=== PATIENT | male | born 1960 | race Two or more races ===

== ENCOUNTER 2018-05-07 11:39 | Emergency (ER) | payer BC ==
[2018-05-07 12:00] VITALS: TEMP 98.2; BMI 26.5
--- NOTE | 2018-05-07 12:16 | PDOC ---
History of Present Illness - General Chief Complaint: Chest Pain Stated Complaint: CHEST PAIN Time Seen by Provider: 05/07/18 12:14 - History of Present Illness Initial Comments: 05/07/18 12:42 57 year old man without significant past medical history who presents with 2 hours of constant substernal burning like chest pain radiating into the L shoulder and arm and associated with nausea, diaphoresis. The patient reports that he has been having this pain intermittently for the past week it would occasionally wake him up from sleep, would worsen when lying back and resolve on its own. The patient denies shortness of breath, lightheadedness, recent illness or fever, recent travel. He is very anxious at bedside as he has never had a pain like this before and he does not regularly follow with a doctor. He has no other complaints at bedside. PCP: none Past History - Past Medical History Allergies/Adverse Reactions: Allergies Allergy/AdvReac Type Severity Reaction Status Date / Time No Known Allergies Allergy Verified 05/07/18 11:58 Home Medications: Ambulatory Orders NK [No Known Home Medication] 10/18/15 COPD: No - Suicide/Smoking/Psychosocial Hx Smoking History: Never smoked Hx Alcohol Use: No Drug/Substance Use Hx: No Substance Use Type: None *Physical Exam - Vital Signs Last Vital Signs Temp Pulse Resp BP Pulse Ox 98.2 F 59 L 18 140/95 100 05/07/18 11:58 05/07/18 11:58 05/07/18 11:58 05/07/18 11:58 05/07/18 11:58 - Physical Exam Comments: 05/07/18 12:50 unremarkable, anxious Moderate Sedation - Procedure Monitoring Vital Signs: Procedure Monitoring Vital Signs Temperature 98.2 F 05/07/18 11:58 Pulse Rate 59 L 05/07/18 11:58 Respiratory Rate 18 05/07/18 11:58 Blood Pressure 140/95 05/07/18 11:58 O2 Sat by Pulse Oximetry (%) 100 05/07/18 11:58 ED Treatment Course - LABORATORY CBC & Chemistry Diagram: 05/07/18 12:37 05/07/18 12:37 Medical Decision Making - Medical Decision Making 05/07/18 12:48 57 year old man without significant past medical history who presents with constant substernal burning like chest pain radiating into the L shoulder and arm and associated with nausea, diaphoresis. The patient reports that he has been having this pain intermittently for the past week it would occasionally wake him up from sleep, would worsen when lying back and resolve on its own. ED Course: consider ACS vs arrythmia vs GERD vs msk cbc, cmp, trop, ekg, cxr pepcid, maalox, tylenol 05/07/18 13:06 EKG: ST elevations in II, III, aVF, ST depression in V2, V3, V4, V5, V6 325 ASA, heparin 5000, morphine 4 [facility] STEMI team made aware recommend 600 plavix morphine 4 redosed 2/2 persistent pain Patient transferred to [facility] *DC/Admit/Observation/Transfer Diagnosis at time of Disposition: STEMI (ST elevation myocardial infarction) - Discharge Dispostion Disposition: TRANSFER ACUTE CARE/OTHER HOSP Condition at time of disposition: Stable Decision to Admit order: No - Referrals - Patient Instructions - Post Discharge Activity
[2018-05-07] MEDS ORDERED: MAG HYDROX/AL HYDROX/SIMETH 30 ML UNIT-DOSE CUP PO ONE (12:44)
[2018-05-07] MEDS ORDERED: FAMOTIDINE 20 MG/50 ML IVPB 20 MG/50 ML MG IVPB ONE ×2 (12:44→12:49)
[2018-05-07] MEDS ORDERED: ACETAMINOPHEN 1000 MG/100 ML VIAL (NON FORMULARY) IVPB ONE (12:44)
[2018-05-07] MEDS ORDERED: ACETAMINOPHEN INJECTION 100 ML IVPB ONE (12:48)
[2018-05-07] MEDS ORDERED: MAG HYDROX/AL HYDROX/SIMETH 30 ML UNIT-DOSE CUP ONE (12:49)
[2018-05-07] MEDS ORDERED: morphine CARPU-JECT 4 MG/1 ML DISP.SYRIN IVPUSH ONE ×2 (12:52→13:16)
[2018-05-07] MEDS ORDERED: morphine SULFATE 4 MG/ML VIAL ONE (12:54)
[2018-05-07] MEDS ORDERED: ASPIRIN 325 MG TABLET PO ONE (12:58)
[2018-05-07] MEDS ORDERED: ASPIRIN 325 MG TABLET ONE (12:59)
--- NOTE | 2018-05-07 13:03 | PDOC ---
Attending Attestation - Resident Resident Name: Barbra Duran - ED Attending Attestation I have performed the following: I have examined & evaluated the patient, The case was reviewed & discussed with the resident, I agree w/resident's findings & plan, Exceptions are as noted - Critical Care Time Total Critical Care Time: 35 Critical Care Statement: The care of this patient involved high complexity decision making to prevent further life threatening deterioration of the patient 's condition and/or to evaluate & treat vital organ system(s) failure or risk of failure. - Medical Decision Making 05/07/18 13:04 A portion of this note was documented by scribe services under my direction. I have reviewed the details of the note, within reason, and agree with the documentation with the following case summary and management plan written by me. Patient treated in the ED. Nursing notes are reviewed and incorporated into the medical decision-making. Vital signs reviewed. Peripheral IV access obtained by the nurse, laboratory studies are drawn and sent, reviewed and interpreted by myself. Vital Signs Temp Pulse Resp BP Pulse Ox 98.2 F 59 L 18 140/95 100 05/07/18 11:58 05/07/18 11:58 05/07/18 11:58 05/07/18 11:58 05/07/18 11:58 57-year-old with no past medical history, does not see a doctor, presents with crushing substernal chest pain rating to left arm. Reports associated shortness of breath and diaphoresis and nausea and dizziness. First-time episode. Does not smoke cigarettes. Has never had a prior cardiac workup. Patient EKG is concerning for STEMI. [facility] STEMI team called stat. Aspirin , heparin, morphine ordered. personnel monitor. 05/07/18 13:19 Case discussed with [facility] cardiology. Pt accepted to transfer to [facility] under Dr. Gtz. They request 600 mg plavix. Pt given IV morphine, aspirin 324 mg, and 5000 unit of heparin. <Paul Oropeza - Last Filed: 05/07/18 13:20> - HPI HPI: 05/07/18 13:36 The patient is a 57 year old male, with no past medical history (does not follow with a PCP), who presents to the emergency department with, 2 hours of intermittent substernal chest pain radiating to the left shoulder with associated nausea and diaphoresis. Patient describes his pain as worsening when lying backwards and endorses never to have similar pain in the past. He denies any recent cardiac evaluation. He denies any recent fevers, chills, headache or dizziness. He denies any recent dysuria, frequency, urgency or hematuria. Allergies: NKDA Past surgical history: None reported. Social History: Nonsmoker. Denies EtOH use and recreational drug use. - Physicial Exam PE: 05/07/18 13:18 +GENERAL: Uncomfortably appearing. Awake, alert, and fully oriented. HEAD: No signs of trauma LUNGS: Breath sounds equal, clear to auscultation bilaterally. No wheezes, and no crackles +HEART: Bradycardic. normal S1 and S2, no murmurs, rubs or gallops ABDOMEN: Soft, nontender. No guarding, no rebound. No masses EXTREMITIES: Normal range of motion, no edema. No clubbing or cyanosis. No cords, erythema, or tenderness NEUROLOGICAL: Cranial nerves II through XII grossly intact. Normal speech. SKIN: Warm, Dry, normal turgor, no rashes or lesions noted. - Medical Decision Making 05/07/18 Call placed to [facility] for a code red STEMI transfer, case discussed STEMI team and accepted by Dr. Gtz. <Juan Lara - Last Filed: 05/07/18 13:37> Heart Score/ECG Review #1 ECG reviewed & interpreted by me at: 11:45 05/07/18 12:55 NSR 50, ?DAVI III (1mm), TWI aVL, V2-V3, ?STD V2-V3 (1mm), QTC 452 msec, normal axis, Q wave AVR #2 ECG reviewed & interpreted by me at: 13:00 05/07/18 13:03 NSR 60, nonspecific intraventricular block, DAVI III, avF, Q wave III, TWI and reciprocal depression V2, QTC 437 msec (STEMI) <Paul Oropeza - Last Filed: 05/07/18 13:20> Attestations - Attestations 05/07/18 13:36 Documentation prepared by Juan Lara, acting as medical record clerk for Paul Oropeza MD. <Juan Lara - Last Filed: 05/07/18 13:37>
[2018-05-07] MEDS ORDERED: HEPARIN NA (PORCINE) 5,000 UNITS/ML 1ML VIAL IVPUSH PRN (13:04)
[2018-05-07 13:09] LABS: BASO % 0.4 % (0-2.0); EOS % 0.6 % (0-4.5); HEMATOCRIT 44.3 % (35.4-49); HEMOGLOBIN 15.3 GM/dL (11.7-16.9); LYMPH % 13.4 % (8-40); MCH 30.7 pg (25.7-33.7); MCHC 34.5 g/dl (32.0-35.9); MEAN CELL VOLUME 88.9 fl (80-96); MEAN PLT VOLUME 8.6 fl (7.5-11.1); MONO % 5.1 % (3.8-10.2); NEUT % 80.5 % (42.8-82.8); PLATELET COUNT 193 K/MM3 (134-434); RBC 4.99 M/mm3 (4.00-5.60); RDW 13.7 % (11.9-15.9); WHITE BLOOD COUNT 10.2 K/mm3 (4.0-10.0)
[2018-05-07] MEDS ORDERED: HEPARIN NA (PORCINE) 5,000 UNITS/ML 1ML VIAL ONE (13:10)
[2018-05-07] MEDS ORDERED: CLOPIDOGREL BISULFATE 300 MG TABLET PO ONE (13:15)
[2018-05-07] MEDS ORDERED: CLOPIDOGREL BISULFATE 300 MG TABLET ONE (13:17)
[2018-05-07 13:42] VITALS: BP 168/101; PULSE 68
[2018-05-07 13:45] LABS: ALK PHOS 118 U/L (45-117); ANION GAP 8 MMOL/L (8-16); BILIRUBIN,TOTAL 0.4 mg/dL (0.2-1); BLOOD UREA NITROGEN 16 mg/dL (7-18); CALCIUM 8.6 mg/dL (8.5-10.1); CHLORIDE 103 mmol/L (98-107); CO2 28 mmol/L (21-32); CREATININE 0.6 mg/dL (0.55-1.3); GLUCOSE,RANDOM 130 mg/dL (74-106); POTASSIUM 4.1 mmol/L (3.5-5.1); SGOT/AST 36 U/L (15-37); SGPT/ALT 33 U/L (13-61); SODIUM 138 mmol/L (136-145)
[2018-05-07 14:46] LABS: INR 0.9 (0.83-1.09); PROTHROMBIN TIME (PATIENT) 10.6 SEC (9.7-13.0)
[2018-05-07 14:49] LABS: ACTIVATED PTT 25.7 SECONDS (25.2-36.5)
--- NOTE | 2018-05-07 15:14 | EKG ---
Test Reason : Blood Pressure : / mmHG Vent. Rate : 060 BPM Atrial Rate : 060 BPM P-R Int : 174 ms QRS Dur : 172 ms QT Int : 452 ms P-R-T Axes : 044 046 046 degrees QTc Int : 452 ms NORMAL SINUS RHYTHM WITH SINUS ARRHYTHMIA NON-SPECIFIC INTRA-VENTRICULAR CONDUCTION BLOCK ABNORMAL ECG NO PREVIOUS ECGS AVAILABLE Confirmed by FABIOLA SHANNON MD ([id number]) on 05/07/2018 3:13:56 PM Referred By: Confirmed By:FABIOLA SHANNON MD
--- NOTE | 2018-05-10 11:58 | EKG ---
Test Reason : Blood Pressure : / mmHG Vent. Rate : 058 BPM Atrial Rate : 058 BPM P-R Int : 182 ms QRS Dur : 166 ms QT Int : 446 ms P-R-T Axes : 058 030 050 degrees QTc Int : 437 ms SINUS BRADYCARDIA POSSIBLE LEFT ATRIAL ENLARGEMENT RIGHT BUNDLE BRANCH BLOCK INFERIOR INFARCT , AGE UNDETERMINED ABNORMAL ECG WHEN COMPARED WITH ECG OF 07-MAY-2018 11:45, INFERIOR INFARCT IS NOW PRESENT Confirmed by MONY ESPARZA, MEGAN ([id number]) on 05/10/2018 11:58:08 AM Referred By: Confirmed By:MEGAN SYKES MD
== END 2018-05-07 13:35 | disposition short-term general hospital (02) ==
LOC: JER 11:39
PROC: 3E033NZ Introduction of Analgesics, Hypnotics, Sedatives into Peripheral Vein, Percutaneous Approach (ICD-10-PCS; principal; 2018-05-07)
PROC: 3E033GC Introduction of Other Therapeutic Substance into Peripheral Vein, Percutaneous Approach (ICD-10-PCS; 2018-05-07)
DX: I21.3 ST elevation (STEMI) myocardial infarction of unspecified site (principal)
CPT/HCPCS: 36415; 80053; 84484; 85025; 85610; 85730; 93005; 93010; 99282-25; J1644

== ENCOUNTER 2021-03-01 09:15 | Day surgery (SDC) | payer BC ==
[2021-02-26 14:49] VITALS: BMI 23.7
[2021-03-01 09:49] VITALS: TEMP 98
[2021-03-01] MEDS ORDERED: PROPOFOL 20 ML ONE (10:45)
[2021-03-01 11:23] VITALS: PULSE 66
[2021-03-01 12:01] VITALS: BP 132/78
== END 2021-03-01 11:55 | disposition home or self-care (01) ==
LOC: FASU-ENDO 09:15
PROVIDERS: ATTEND Internal Medicine Gastroenterology
PROC: 0DJD8ZZ Inspection of Lower Intestinal Tract, Via Natural or Artificial Opening Endoscopic (ICD-10-PCS; principal; 2021-03-01 10:45)
DX: Z12.11 Encounter for screening for malignant neoplasm of colon (principal)